=== PATIENT | female | born 2005 | race Caucasian/White ===

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

== ENCOUNTER 2024-11-26 08:59 | Emergency (ER) | payer BC, SELFPAY ==
[2024-11-26 09:11] VITALS: BP 109/67; PULSE 77; RESP 18; TEMP 36.9; O2SAT 97; BMI 25.8
[2024-11-26 09:13] VITALS: PULSE 77; O2SAT 97
--- NOTE | 2024-11-26 09:14 | DI.RAD.S_ITS ---
PROCEDURE: XR CHEST 2V INDICATIONS: cough, pain with cough x 7 days TECHNIQUE: 2 views of the chest were acquired. COMPARISON: [facility], CR, XR CHEST 1V, 08/12/2022, 12:27. FINDINGS: Surgical changes and devices: None. Lungs and pleura: Right upper lung consolidation. No pleural effusions. Mediastinum: Normal heart size Bones and chest wall: Unremarkable IMPRESSION: Right upper lung presumed pneumonia. Consider future imaging surveillance to assess for resolution. Dictated by: Fran Wiley M.D. on 11/26/2024 at 8:59 Approved by: Fran Wiley M.D. on 11/26/2024 at 9:00
[2024-11-26 09:30] VITALS: PULSE 73; O2SAT 96
--- NOTE | 2024-11-26 09:50 | ED_ITS ---
HPI - General Adult General Chief complaint: Upper Respiratory Symptoms Stated complaint: poss pneumonia, chest pain Time Seen by Provider: 11/26/24 09:14 Source: patient, RN notes reviewed and old records reviewed Mode of arrival: Ambulatory Limitations: no limitations History of Present Illness HPI narrative: 19-year-old female with complaint of for 5 days of myalgias, nausea or vomiting and fevers followed by a cough that has been productive with yellow greenish sputum. Patient states she was started developed a little bit of chest discomfort particularly with cough. No active shortness of breath. States fevers has been a little bit better. She states she did not have a lot of congestion initially. She was also noted a new left ear discomfort. Patient states she has been mildly constipated. No dysuria urgency or frequency no swelling of extremities. Patient states her only home medication is oral contraceptive. Recently quit using tobacco, no recreational or IV drugs. Patient notes an allergy to cephalexin which she states she was told she had after she had a lot of devils eggs and had hives and told that there was cephalexin or a similar like substance in the devil eggs. Related Data Previous Rx's Medication Instructions Recorded drospirenone 3 mg-ethinyl 1 tab PO DAILY #84 tabs 11/16/24 estradiol 0.02 mg tablet (Angelita (28)) azithromycin 250 mg tablet See Rx Instructions PO .COMPLEX #6 11/26/24 tabs Allergies Allergy/AdvReac Type Severity Reaction Status Date / Time cephalexin Allergy Severe Hives Verified 11/16/24 15:41 Review of Systems Review of Systems ROS Unobtainable: All systems reviewed & are unremarkable except as noted in HPI and below Patient History Medical History Family history of carcinoma in situ of breast Racing heart beat BCP ( control pills) initiation Depression Social History Smoking Status: Current every day smoker Smoking Status: Current every day smoker tobacco type: vaping Exam Narrative Exam Narrative: GEN: well nourished, well appearing female, alert and oriented x 3, patient appears to be in mild distress. HEENT: Atraumatic, pupils are equal round reactive to light, extraocular movements are intact, nares are clear, right TM slightly retracted good light reflex intact. Left TM is erythematous bulge with loss of light reflex, there is no conjunctival pallor. Throat is clear without any exudates, erythema, tonsillar enlargement or uvular deviation HEART: Regular rate and rhythm without murmur, clicks, rubs. No carotid bruits, pulses are equal in upper and lower extremities LUNGS:Lungs clear to auscultation, no wheezes, rales, crackles, chest moves sym metrically, no tachypnea accessory muscle use. Patient does have a dry persistent cough on exam ABD:bowel sounds normal, soft, non-tender, no guarding, rebound, rigidity, no masses noted, no hepatosplenomegaly MSCL: Non-tender, no muscle atrophy, muscles strength 5/5 upper and lower extremities, full range of motion, normal gait NEURO:CN 2-12 intact, sensation normal. Initial Vital Signs Initial Vital Signs: Vital Signs Temperature 98.4 F 11/26/24 09:11 Pulse Rate 77 11/26/24 09:11 Respiratory Rate 18 11/26/24 09:11 Blood Pressure 109/67 11/26/24 09:11 Pulse Oximetry 97 11/26/24 09:11 Oxygen Delivery Method Room Air 11/26/24 09:11 Course Orders Ordered: ED Orders 11/26/24 09:14 Chest [XR chest 2V] Stat 11/26/24 09:18 Covid-19 + FLU A/B + RSV - PCR Stat Discontinued Medications Ibuprofen (Ibuprofen 400 Mg Tablet) 800 mg PO NOW ONE Stop: 11/26/24 10:30 Last Admin: 11/26/24 10:52 Dose: 800 mg Documented By: RB Vital Signs Vital signs: Vital Signs - 8 hr 11/26/24 09:11 11/26/24 09:13 11/26/24 09:30 Temperature 98.4 F Pulse Rate 77 77 73 Respiratory Rate 18 Blood Pressure 109/67 Pulse Oximetry 97 97 96 Oxygen Delivery Method Room Air 11/26/24 10:00 11/26/24 10:30 Temperature Pulse Rate 74 71 Respiratory Rate Blood Pressure 112/68 Pulse Oximetry 97 97 Oxygen Delivery Method Medical Decision Making Lab Data Labs: Lab Results 11/26/24 Range/Units 09:18 SARS-CoV-2 (PCR) Negative (Negative) Influenza A (RT-PCR) Flu a negative (NEGATIVE) Influenza B (RT-PCR) Flu b negative (NEGATIVE) RSV (PCR) Negative (Negative) Imaging Data Chest x-ray: Radiologist's Impression: Annita Rutherford??19??F??2005 ? Allergy/Adv: cephalexin Close Chest X-Ray (Signed) SaurabhFran - 11/26/24 Abdomen/Pelvis CT (Signed) Sydnee Stringere - 12/20/22 Abdomen Ultrasound (Signed) Mary Ann Cullen - 09/29/22 Chest X-Ray (Signed) Toni Connelly - 08/12/22 Launch?Image [address] [address] XRay Report Signed Patient: Annita Rutherford MR#: [id number] : 2005 Acct:[id number] Age/Sex: 19 / F Date of Service: 11/26/24 Loc: ED Accession Number: [id number] Procedure: XR chest 2V Ordering Provider: Corie Hernandez D.O. PROCEDURE: XR CHEST 2V INDICATIONS: cough, pain with cough x 7 days TECHNIQUE: 2 views of the chest were acquired. COMPARISON: [facility], , XR CHEST 1V, 08/12/2022, 12:27. FINDINGS: Surgical changes and devices: None. Lungs and pleura: Right upper lung consolidation. No pleural effusions. Mediastinum: Normal heart size Bones and chest wall: Unremarkable IMPRESSION: Right upper lung presumed pneumonia. Consider future imaging surveillance to assess for resolution. Dictated by: Fran Wiley M.D. on 11/26/2024 at 8:59 Approved by: Fran Wiley M.D. on 11/26/2024 at 9:00 [facility] Narrative Medical decision making narrative: 19-year-old female who has influenza like illness patient is overall well- appearing vitals are appropriate. On exam she does have a left otitis media lungs are clear but notes worsening cough some productive sputum chest x-ray was obtained as well. COVID/influenza/RSV is negative Chest x-ray shows right upper lobe presumed pneumonia Patient notes allergy to cephalexin but states it was related to eating ?a lot of devil day eggs.? We will treat for pneumonia/otitis media. Discharge Plan Departure Patient Disposition: Home Clinical Impression: Pneumonia, Otitis media Instructions: DI for Pneumonia -- Adult Activity Restrictions/Additional Instructions: Your COVID/influenza/RSV swab is negative your chest x-ray does show changes consistent with pneumonia. Please take oral antibiotics until completed. Prescription was sent to [facility] in [place]. Start your antibiotics today. You can take acetaminophen up to a 1000 mg every 6 hours and/or ibuprofen up to 600 mg every 6 hours as needed for pain or fever. Please return for any new or worsening chest pain, shortness of breath, lightheadedness or passing out, swelling of extremities, difficulty with breathing or other new or concerning changes. Prescriptions: New azithromycin 250 mg tablet See Rx Instructions .ROUTE .COMPLEX Qty: 6 0RF Rx Instructions: For 250 mg dose pack: take 500 mg today (day 1), then 250 mg for 4 days (days 2-5) No Action drospirenone-ethinyl estradiol [Angelita (28)] 3-0.02 mg tablet 1 tab PO DAILY Qty: 84 2RF Referrals: Lorraine Poole MD [Primary Care Provider] - Stand Alone Forms: Patient Portal/API/Survey
[2024-11-26 10:00] VITALS: PULSE 74; O2SAT 97
[2024-11-26 10:05] LABS: COVID-19 CEPHEID 4-PLEX PCR Negative (Negative); Influenza A - CEPHEID Flu A NEGATIVE (NEGATIVE); Influenza B - CEPHEID Flu B NEGATIVE (NEGATIVE); Respiratory Syncytial Virus Negative (Negative)
[2024-11-26 10:30] VITALS: BP 112/68; PULSE 71; O2SAT 97
[2024-11-26] MEDS: IBUPROFEN 400 MG TABLET 800 MG PO (10:52)
== END 2024-11-26 10:57 | disposition home or self-care (01) ==
PROVIDERS: Emergency Provider Emergency Medicine; PCP Family Medicine
DX: J18.9 Pneumonia, unspecified organism (principal); H66.92 Otitis media, unspecified, left ear; Z87.891 Personal history of nicotine dependence
CPT/HCPCS: 0241U; 71046; 99283